=== PATIENT | male | born 1945 | race Two or more races ===

== ENCOUNTER 2024-12-06 11:56 | Emergency (ER) | payer OTHER ==
[~2024-12-06] VITALS: Ht 177.8 cm; Wt 68.0 kg
[2024-12-06] MEDS ORDERED: LORazepam 2 MG/ML VIAL IM ONE (12:30)
[2024-12-06] MEDS ORDERED: LORazepam 2 MG/ML VIAL ONE (13:46)
== END 2024-12-06 19:39 | disposition home or self-care (01) ==
LOC: ER 11:56
DX: S09.8XXA Other specified injuries of head, initial encounter (principal); X58.XXXA Exposure to other specified factors, initial encounter; Y93.89 Activity, other specified; Y92.098 Other place in other non-institutional residence as the place of occurrence of the external cause; Y99.8 Other external cause status
CPT/HCPCS: 70450; 73070; 96372; 99284; J3490